=== PATIENT | female | born 1985 | race African-American/Black ===

== ENCOUNTER 2016-06-13 23:11 | Emergency (ER) | payer BC, OTHER ==
[~2016-06-13] VITALS: Ht 172.7 cm; Wt 77.1 kg
[2016-06-13 23:37] VITALS: BP 134/82
--- NOTE | 2016-06-14 00:35 | EKG ---
[facility] [address] [place] [address] Test Date: 2016-06-13 Test Time: 23:23:07 Pat Name: LILLIE HILTON Department: Room: Gender: F Transportation Clerk: : 1985 Requested By: Louis KRAUSE Order Number: [id number] Reading MD: Monique Hernandez Measurements Intervals Sigel Rate: 83 P: 60 NV: 154 QRS: 70 QRSD: 112 T: 24 QT: 378 QTc: 445 Interpretive Statements SINUS RHYTHM ABNORMAL ECG RI6.01 Compared to ECG 09/16/2015 20:53:10 No significant changes Electronically Signed On 06-15-2016 18:08:56 CDT by Monique Hernandez
--- NOTE | 2016-06-14 00:35 | PHYS DOC ---
Past Medical History Past Medical History: No Pertinent History Past Surgical History: No Surgical History Alcohol Use: Occasionally Drug Use: None Adult General Chief Complaint Chief Complaint: CHEST PAIN HPI HPI Patient is a 30 year old female who presents with one day of gradual onset left -sided chest pain that is constant, involving the entire left chest and left shoulder, started at rest this morning. States there are no aggravating or alleviating symptoms. States she recently had an upper respiratory infection that has resolved. She denies dyspnea, cough, hemoptysis, leg pain or swelling, fever or chills, nausea or vomiting, abdominal pain, diarrhea, dysuria, back pain. She is 2 months , bottle feeding, denies breast pain. Denies rash. Review of Systems Review of Systems Constitutional: Denies fever or chills [] Eyes: Denies change in visual acuity, redness, or eye pain [] HENT: Denies nasal congestion or sore throat [] Respiratory: Denies cough or shortness of breath [] Cardiovascular: No additional information not addressed in HPI [] GI: Denies abdominal pain, nausea, vomiting, bloody stools or diarrhea [] : Denies dysuria or hematuria [] Musculoskeletal: Denies back pain or joint pain [] Integument: Denies rash or skin lesions [] Neurologic: Denies headache, focal weakness or sensory changes [] Endocrine: Denies polyuria or polydipsia [] Allergies Allergies Allergies Coded Allergies Type Severity Reaction Last Updated Verified No Known Drug Allergies 06/18/15 No Physical Exam Physical Exam Constitutional: Well developed, well nourished, no acute distress, non-toxic appearance. [] HENT: Normocephalic, atraumatic, bilateral external ears normal, oropharynx moist, nose normal. [] Eyes: PERRLA, EOMI. [] Neck: Normal range of motion, supple. [] Cardiovascular:Heart rate regular rhythm [] Lungs & Thorax: Bilateral breath sounds clear to auscultation [] Abdomen: Bowel sounds normal, soft, no tenderness. [] Skin: Warm, dry, no erythema, no rash. [] Back: No tenderness, no CVA tenderness. [] Extremities: No tenderness, ROM intact, no edema, no palpable cord. [] Neurologic: Alert and oriented X 3, normal motor function, normal sensory function, no focal deficits noted. [] Psychologic: Affect normal, judgement normal, mood normal. [] Current Patient Data Vital Signs Vital Signs Date Time Temp Pulse Resp B/P (MAP) Pulse Ox O2 Delivery O2 Flow Rate FiO2 06/13/16 23:37 98.2 86 20 134/82 (99) 95 Room Air 98.2 Lab Values Laboratory Tests Test 06/13/16 23:16 POC Urine HCG, Qualitative Hcg negative (Negative) EKG EKG ECG as interpreted by me as sinus rhythm with interventricular block, rate 83, no ST-T changes, normal intervals, no ectopy Radiology/Procedures Radiology/Procedures Chest xray as interpreted by me with no acute cardiopulmonary disease process Course & Med Decision Making Course & Med Decision Making Pertinent Labs and Imaging studies reviewed. (See chart for details) Workup is unremarkable. Discussed symptomatic treatment and encouraged close follow-up. Strict return precautions given. She understands and agrees with plan. Dragon Disclaimer Dragon Disclaimer This electronic medical record was generated, in whole or in part, using a voice recognition dictation system. Departure Departure Impression: Primary Impression: Left sided chest pain Disposition: HOME, SELF-CARE Condition: STABLE Referrals: UNKNOWN PCP NAME (PCP) Patient Instructions: Chest Pain (Nonspecific), [id number] Additional Instructions: Take Tylenol or ibuprofen as needed for pain. Follow-up with your primary care doctor within one week. Return for any concerns. Louis KRAUSE MD June 14, 2016 00:35
--- NOTE | 2016-06-14 08:18 | RAD ---
Indication chest pain. PA and lateral views of the chest were obtained. No prior imaging of the chest is available. Heart pulmonary vessels and mediastinum appear normal. The lungs are clear. IMPRESSION: Normal study
== END 2016-06-14 00:56 | disposition home or self-care (01) ==
LOC: ER 23:11
DX: R07.89 Other chest pain (principal); M25.512 Pain in left shoulder
CPT/HCPCS: 71020; 81025; 84703; 93005; 99284-25